=== PATIENT | male | born 1980 | race Two or more races ===

== ENCOUNTER 2023-07-30 12:36 | Emergency (ER) | payer SELFPAY ==
[2023-07-30] MEDS ORDERED: HYDROmorphone 1 MG/ML Syringe IVPUSH ONE (12:55)
[2023-07-30] MEDS ORDERED: Diphtheria,Pertussis(Acell),Tetanus Vaccine 0.5 ML Syringe IM ONE (12:55)
[2023-07-30] MEDS ORDERED: LORazepam 0.5 MG Tab PO ONE (12:55)
[2023-07-30] MEDS ORDERED: ceFAZolin 2 GM in Sodium Chloride 0.9% 50 ML IV ONE (13:22)
[2023-07-30] MEDS ORDERED: Ondansetron 4 MG/2 ML SDV ONE (14:31)
[2023-07-30] MEDS ORDERED: Ondansetron 4 MG/2 ML SDV IVPUSH ONE (14:55)
[2023-07-30] MEDS ORDERED: Bupivacaine 0.5% 10 ML SDV INJECT ONE (15:53)
[2023-07-30] MEDS ORDERED: Cephalexin 250 MG Cap PO ONE ×2 (21:04→21:05)
[2023-07-30] MEDS ORDERED: Acetaminophen/oxyCODONE 325-5 MG Tab PO ONE (21:14)
== END 2023-07-30 22:06 | disposition home or self-care (01) ==
LOC: JD.ED 12:36
DX: S62.630B Displaced fracture of distal phalanx of right index finger, initial encounter for open fracture (principal); S62.631A Displaced fracture of distal phalanx of left index finger, initial encounter for closed fracture; Z23 Encounter for immunization; W23.1XXA Caught, crushed, jammed, or pinched between stationary objects, initial encounter
CPT/HCPCS: 11760; 12005; 73130; 73140; 90471; 90715; 96365; 96375; 99284; A9270; J0690; J1170; J2405; J3490